=== PATIENT | female | born 1980 | race Two or more races ===

== ENCOUNTER 2017-05-26 20:43 | Emergency (ER) | payer SELFPAY ==
--- NOTE | 2017-05-26 21:18 | RADIOLOGY REPORT (SQ) ---
EXAM DESCRIPTION: CHEST PA/LAT COMPLETED DATE/TIME: 05/26/2017 9:03 pm REASON FOR STUDY: short of breath COMPARISON: 04/07/2016. EXAM PARAMETERS: NUMBER OF VIEWS: two views TECHNIQUE: Digital Frontal and Lateral radiographic views of the chest acquired. RADIATION DOSE: NA LIMITATIONS: none FINDINGS: LUNGS AND PLEURA: No opacities, masses or pneumothorax. No pleural effusion. MEDIASTINUM AND HILAR STRUCTURES: No masses or contour abnormalities. HEART AND VASCULAR STRUCTURES: Heart normal size. No evidence for failure. BONES: No acute findings. HARDWARE: None in the chest. OTHER: No other significant finding. IMPRESSION: NO SIGNIFICANT RADIOGRAPHIC FINDING IN THE CHEST. TECHNICAL DOCUMENTATION: JOB ID: [id number] [employer]- All Rights Reserved
[2017-05-26] MEDS ORDERED: METHYLPREDNISOLONE INJ 125 MG/2 ML SDV IM ONE (23:22)
[2017-05-26] MEDS ORDERED: IPRATROPIUM/ALBUTEROL 0.5-2.5 MG/3 ML AMPUL NEB ONE (23:22)
--- NOTE | 2017-05-27 00:56 | ER Document Report ---
ED General - General Chief Complaint: Breathing Difficulty Stated Complaint: DIFFICULTY BREATHING Time Seen by Provider: 05/26/17 23:10 Mode of Arrival: Ambulatory Information source: Patient Notes: Patient is a 37-year-old female comes emergency room planing of difficulty breathing and chest discomfort. Patient states she was walking prior to arrival here she became more short of breath she took her inhalers without much relief the shortness of breath got worse she had a little bit more anxiety and felt chest hurting her some so she came to ER. 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 Patient has a history of asthma in the past is on pro-air, albuterol MDI and albuterol nebs at home. Does have a cardiac history in the family of father dying at age 57 of a heart attack. The patient states that her primary concern is her difficulty breathing and when she cannot breathe she gets more anxious and the more anxious she gets the worse it becomes. TRAVEL OUTSIDE OF THE [place] IN LAST 30 DAYS: No - HPI Patient complains to provider of: Shortness of breath Onset: Just prior to arrival Onset/Duration: Sudden, Persistent Quality of pain: No pain Severity: Moderate Pain Level: 3 Associated symptoms: Shortness of breath Exacerbated by: Walking, Coughing, Deep breathing Relieved by: Other - Nebulizer most of the time. Similar symptoms previously: Yes Recently seen / treated by doctor: No - Related Data Allergies/Adverse Reactions: No Known Allergies Allergy (Verified 05/26/17 20:44) Past Medical History - General Information source: Patient - Social History Smoking Status: Never Smoker Cigarette use (# per day): No Chew tobacco use (# tins/day): No Smoking Education Provided: No Frequency of alcohol use: None Drug Abuse: None Family History: None, CAD, Other - 7Father of an [place] at 52 Patient has suicidal ideation: No Patient has homicidal ideation: No Pulmonary Medical History: Reports: Hx Asthma Renal/ Medical History: Denies: Hx Peritoneal Dialysis - Immunizations Immunizations up to date: Yes Hx Diphtheria, Pertussis, Tetanus Vaccination: Yes Review of Systems - Review of Systems Constitutional: No symptoms reported EENT: No symptoms reported Cardiovascular: No symptoms reported Respiratory: Cough, Short of breath, Wheezing Gastrointestinal: No symptoms reported Genitourinary: No symptoms reported Female Genitourinary: No symptoms reported Musculoskeletal: No symptoms reported Skin: No symptoms reported Hematologic/Lymphatic: No symptoms reported Neurological/Psychological: No symptoms reported -: Yes All other systems reviewed and negative Physical Exam - Vital signs Vitals: Temp Pulse Resp BP Pulse Ox 97.9 F 117 H 22 H 139/81 H 100 05/26/17 20:48 05/26/17 20:48 05/26/17 20:48 05/26/17 20:48 05/26/17 20:48 Interpretation: Hypertensive, Tachycardic - General General appearance: Anxious In distress: Moderate - Respiratory Respiratory status: No respiratory distress, Tachypnea Chest status: Nontender Breath sounds: Decreased air movement, Nonproductive cough, Wheezing Chest palpation: Normal - Cardiovascular Rhythm: Tachycardia Murmur: No - Neurological Neuro grossly intact: Yes Cognition: Normal Orientation: AAOx4 Ashley Coma Scale Eye Opening: Spontaneous [place] Coma Scale Verbal: Oriented [place] Coma Scale Motor: Obeys Commands Ashley Coma Scale Total: 15 Speech: Normal Course - Vital Signs Vital signs: Temp Pulse Resp BP Pulse Ox 97.9 F 117 H 22 H 139/81 H 100 05/26/17 20:48 05/26/17 20:48 05/26/17 20:48 05/26/17 20:48 05/26/17 20:48 - Diagnostic Test Radiology reviewed: Reports reviewed - Chest x-ray was clear - EKG Interpretation by Me EKG shows normal: Sinus rhythm Rate: Normal Rhythm: NSR - Transfer of Care Notes: 05/27/17 00:58 Patient was given a neb treatment and Solu-Medrol injection EKG was totally normal through her course of stay patient started breathing much easier when reevaluated lung sounds were increased markedly with no inspiratory or expiratory wheezing noted. Patient has now no anterior chest discomfort she feels much better. Patient currently has at home her nebulizer, her MDIs are full and we are going to place her on a steroid taper which should help with the tightness in the chest with the change in weather and her chemical reactions to have a may be a reactive airway type disease caused by a stimulant. Discharge - Discharge Clinical Impression: Acute severe exacerbation of asthma Reactive airway disease Qualifiers: Asthma severity: moderate Asthma persistence: persistent Asthma complication type: uncomplicated Qualified Code(s): J45.40 - Moderate persistent asthma, uncomplicated Disposition: HOME, SELF-CARE Instructions: Corticosteroid Inhaler ([facility]), Bronchitis With Bronchospasm ( Wheezing) ([facility]) Additional Instructions: Home and rest. Medication as prescribed. As we discussed anything that can aggravate or set off your asthma is something you need to try to avoid like chemicals. Should you have any concerns or problems over the course of the next few days if your breathing gets worse return to ER for recheck. Prescriptions: Prednisone [Sterapred Ds] 10 mg PO ASDIR PRN #1 tab.ds.pk PRN Reason: Forms: Parent Work Note, Elevated Blood Pressure
[2017-05-27 01:23] VITALS: BP 125/80
--- NOTE | 2017-05-27 08:06 | EKG REPORT ---
SEVERITY:- OTHERWISE NORMAL ECG - SINUS RHYTHM : Confirmed by: Jessica Drake 27-May-2017 08:05:43
== END 2017-05-27 01:20 | disposition home or self-care (01) ==
LOC: ER 20:43
DX: J45.41 Moderate persistent asthma with (acute) exacerbation (principal); Z87.891 Personal history of nicotine dependence
CPT/HCPCS: 93005; 94640; 99285; 96372; 71020; 93010; J2930; J7620